=== PATIENT | male | born 1960 | race Two or more races ===

== ENCOUNTER 2017-05-12 12:21 | Inpatient (IN) | payer OTHER ==
[2017-05-12 12:40] VITALS: BMI 27.0
--- NOTE | 2017-05-12 14:20 | HP ---
CIWA Score - CIWA Score Nausea/Vomitin-Mild Nausea/No Vomiting Muscle Tremors: 3 Anxiety: 4-Mod. Anxious/Guarded Agitation: 4-Moderately Restless Paroxysmal Sweats: 3 Orientation: 1-Uncertain about Date Tacttile Disturbances: 2-Mild Itch/Numbness/Burn Auditory Disturbances: 0-None Visual Disturbances: 0-None Headache: 0-None Present CIWA-Ar Total Score: 18 Admission ROS [facility] - HPI Chief Complaint: Withdrawal sx. Allergies/Adverse Reactions: Allergies Allergy/AdvReac Type Severity Reaction Status Date / Time No Known Allergies Allergy Verified 05/12/17 13:43 History of Present Illness: 56 y/o man with a long hx. of alcoholism is admitted for detox. Pt. denies previous detox, he was in rehab once in 1988. Pt. reports 2 yrs. sobriety. Exam Limitations: No Limitations - Ebola screening Have you traveled outside of the country in the last 21 days: No (N) Have you had contact with anyone from an Ebola affected area: No Have you been sick,other than usual withdrawal symptoms: No Do you have a fever: No - Review of Systems Constitutional: Diaphoresis EENT: reports: No Symptoms Reported Respiratory: reports: No Symptoms reported Cardiac: reports: No Symptoms Reported GI: reports: Nausea, Abdominal cramping : reports: No Symptoms Reported Musculoskeletal: reports: Back Pain, Joint Pain Integumentary: reports: Sweating Neuro: reports: Tingling, Tremors Endocrine: reports: No Symptoms Reported Hematology: reports: No Symptoms Reported Psychiatric: reports: No Sypmtoms Reported Other Systems: Reviewed and Negative Patient History - Patient Medical History Hx Anemia: No Hx Asthma: No Hx Chronic Obstructive Pulmonary Disease (COPD): No Hx Cancer: No Hx Cardiac Disorders: No Hx Congestive Heart Failure: No Hx Hypertension: Yes Hx Hypercholesterolemia: Yes Hx Pacemaker: No HX Cerebrovascular Accident: No Hx Seizures: No Hx Dementia: No Hx Diabetes: No Hx Gastrointestinal Disorders: No Hx Liver Disease: No Hx Genitourinary Disorders: No Hx Sexually Transmitted Disorders: Yes (Syphillis) Hx Renal Disease (ESRD): No Hx Thyroid Disease: No Hx Human Immunodeficiency Virus (HIV): No Hx Hepatitis C: No Hx Depression: No Hx Suicide Attempt: No Hx Bipolar Disorder: No Hx Schizophrenia: No - Patient Surgical History Past Surgical History: Yes Hx Neurologic Surgery: Yes (Lumbar laminectomy) Hx Cataract Extraction: No Hx Cardiac Surgery: No Hx Lung Surgery: No Hx Breast Surgery: No Hx Breast Biopsy: No Hx Abdominal Surgery: No Hx Appendectomy: No Hx Cholecystectomy: No Hx Genitourinary Surgery: No Hx Section: No Hx Orthopedic Surgery: Yes (lower back fusion-03/26/17/double knee replacement- 2016 lt knee redone-2016) Anesthesia Reaction: No - PPD History Previous Implant?: Yes Documented Results: Negative w/o proof Implanted On Prior [facility] Admission?: No PPD to be Administered?: Yes - Smoking Cessation Smoking history: Current every day smoker Have you smoked in the past 12 months: Yes Aproximately how many cigarettes per day: 10 Hx Chewing Tobacco Use: No Initiated information on smoking cessation: Yes 'Breaking Loose' booklet given: 05/12/17 - Substance & Tx. History Hx Alcohol Use: Yes Hx Substance Use: Yes Substance Use Type: Alcohol, Cocaine, Marijuana Hx Substance Use Treatment: Yes (Rehab in 1988) - Substances Abused Alcohol Route: Oral Frequency: Daily Amount used: vodka(1liter) Age of first use: 14 Date of Last Use: 05/11/17 Cocaine Route: Inhalation Frequency: Daily Amount used: $50 Age of first use: 33 Date of Last Use: 05/10/17 Marijuana/Hashish Route: Smoking Frequency: Daily Amount used: $20 Age of first use: 16 Date of Last Use: 05/09/17 Family Disease History - Family Disease History Family Disease History: Diabetes: Grandparent, Heart Disease: Father (HTN, Alcohol), Mother (HTN), Other: Father, Brother (Alcohol) Admission Physical Exam [facility] - Vital Signs Vital Signs: Vital Signs - 24 hr 05/12/17 12:24 Temperature 97.6 F Pulse Rate 89 Respiratory 18 Rate Blood Pressure 163/97 - Physical General Appearance: Yes: Tremorous, Irritable, Sweating, Anxious HEENTM: Yes: Within Normal Limits Respiratory: Yes: Chest Non-Tender, Lungs Clear, Normal Breath Sounds Neck: Yes: Supple Breast: Yes: Breast Exam Deferred Cardiology: Yes: Regular Rhythm, Regular Rate, S1, S2 Abdominal: Yes: Normal Bowel Sounds, Non Tender, Soft Genitourinary: Yes: Within Normal Limits Back: Yes: Decreased Range of Motion, Surgical Scar Musculoskeletal: Yes: Joint swelling Extremities: Yes: Tremors, Other (Surgical scars both knees) Neurological: Yes: Fully Oriented, Alert Integumentary: Yes: Within Normal Limits Lymphatic: Yes: Within Normal Limits - Diagnostic (1) Alcohol dependence with uncomplicated withdrawal Current Visit: Yes Status: Acute (2) HTN (hypertension) Current Visit: Yes Status: Acute (3) Hypercholesterolemia Current Visit: Yes Status: Acute (4) Cocaine dependence, uncomplicated Current Visit: Yes Status: Acute (5) Arthritis of both knees Current Visit: Yes Status: Acute Cleared for Admission [facility] - Detox or Rehab [facility] Level of Care: Medically Managed Detox Regimen/Protocol: Librium [facility] Breath Alcohol Content Breath Alcohol Content: 0 Urine Drug Screen - Results Drug Screen Negative: No Urine Drug Screen Results: MAYUR-Cocaine
[2017-05-12] MEDS ORDERED: MAG HYDROX/AL HYDROX/SIMETH 30 ML UNIT-DOSE CUP PO PRN (14:31)
[2017-05-12] MEDS ORDERED: P-EPHED 60MG/TRIPROLIDI 2.5MG TABLET PO PRN (14:31)
[2017-05-12] MEDS ORDERED: guaiFENesin/D-METHORPHAN HB 10 ML UNIT-DOSE CUPS PO PRN (14:31)
[2017-05-12] MEDS ORDERED: MAGNESIUM CITRATE 300 ML BOTTLE PO PRN (14:31)
[2017-05-12] MEDS ORDERED: MAGNESIUM HYDROX 2400MG/30ML ORAL SUSPENSION 30 ML CUP PO PRN (14:31)
[2017-05-12] MEDS ORDERED: chlordiazePOXIDE HCL 25 MG CAPSULE PO ONE (14:31)
[2017-05-12] MEDS ORDERED: MENTHOL/PHENOL 1 EACH UD MM PRN (14:31)
[2017-05-12] MEDS ORDERED: LOPERAMIDE HCL 2 MG CAPSULE PO PRN (14:31)
[2017-05-12] MEDS ORDERED: ACETAMINOPHEN 325 MG TABLET (FP) PO PRN (14:31)
[2017-05-12] MEDS ORDERED: NICOTINE POLACRILEX 2 MG GUM BC PRN (14:31)
[2017-05-12] MEDS ORDERED: chlordiazePOXIDE HCL 25 MG CAPSULE PO PRN (14:31)
[2017-05-12] MEDS: chlordiazePOXIDE HCL 25 MG CAPSULE PO SCH ×2 (17:53→22:14)
[2017-05-12] MEDS: NICOTINE 21 MG/24 HOURS TOPICAL PATCH TD SCH (18:07)
[2017-05-12] MEDS: DOXAZOSIN MESYLATE 4 MG TABLET PO SCH (20:38)
[2017-05-12] MEDS: ATORVASTATIN CA 10 MG TABLET (FP) PO SCH (22:13)
[2017-05-12] MEDS: THIAMINE HCL 100 MG TABLET (FP) PO SCH (22:13)
[2017-05-12] MEDS: CEPHALEXIN MONOHYDRATE 500 MG CAPSULE (UD) PO SCH (22:13)
[2017-05-12] MEDS: IBUPROFEN 400 MG TABLET (FP) PO PRN (22:16)
[2017-05-12] MEDS: hydrOXYzine PAMOATE 50 MG CAPSULE (FP) PO PRN (22:16)
[2017-05-12 23:38] LABS: URINE APPEARANCE TURBID; URINE BILIRUBIN NEGATIVE (NEGATIVE); URINE BLOOD NEGATIVE (NEGATIVE); URINE COLOR YELLOW; URINE GLUCOSE (UA) NEGATIVE (NEGATIVE); URINE KETONE NEGATIVE (NEGATIVE); URINE LEUK ESTERASE NEGATIVE (NEGATIVE); URINE NITRITE NEGATIVE (NEGATIVE); URINE PROTEIN NEGATIVE (NEGATIVE); URINE UROBILINOGEN NEGATIVE mg/dL (0.2-1.0)
[2017-05-13] MEDS: chlordiazePOXIDE HCL 25 MG CAPSULE PO SCH ×5 (05:12→22:07)
--- NOTE | 2017-05-13 08:51 | EKG ---
Test Reason : Blood Pressure : / mmHG Vent. Rate : 084 BPM Atrial Rate : 084 BPM P-R Int : 132 ms QRS Dur : 084 ms QT Int : 362 ms P-R-T Axes : 073 053 023 degrees QTc Int : 427 ms NORMAL SINUS RHYTHM NORMAL ECG NO PREVIOUS ECGS AVAILABLE Confirmed by Vishal Kennedy ([id number]) on 05/13/2017 8:50:43 AM Referred By: Stef Logan Confirmed By:Vishal Kennedy
[2017-05-13 10:24] LABS: HEMATOCRIT 36.2 % (35.4-49); HEMOGLOBIN 11.6 GM/dL (11.7-16.9); MCH 33.5 pg (25.7-33.7); MCHC 32.1 g/dl (32.0-35.9); MEAN CELL VOLUME 104.3 fl (80-96); MEAN PLT VOLUME 8.2 fl (7.5-11.1); PLATELET COUNT 278 K/MM3 (134-434); RBC 3.47 M/mm3 (4.00-5.60); RDW 14.8 % (11.9-15.9); WHITE BLOOD COUNT 5.8 K/mm3 (4.0-10.0)
[2017-05-13 10:27] LABS: CHLORIDE 109 mmol/L (98-107); POTASSIUM 3.5 mmol/L (3.5-5.1); SODIUM 144 mmol/L (136-145)
[2017-05-13 10:34] LABS: ALBUMIN 3.3 g/dl (3.4-5.0); ALK PHOS 73 U/L (45-117); ANION GAP 8 (8-16); BILIRUBIN,TOTAL 0.7 mg/dL (0.2-1.0); BLOOD UREA NITROGEN 16 mg/dL (7-18); CALCIUM 7.9 mg/dL (8.5-10.1); CO2 27 mmol/L (21-32); CREATININE 0.9 mg/dL (0.7-1.3); GLUCOSE,RANDOM 95 mg/dL (74-106); SGOT/AST 16 U/L (15-37); SGPT/ALT 22 U/L (12-78); TOT PROT 5.5 g/dl (6.4-8.2)
[2017-05-13] MEDS: PRENATAL VITAMINS W/ FOLIC ACID TABLET (FP) PO SCH (10:37)
[2017-05-13] MEDS: DOXAZOSIN MESYLATE 4 MG TABLET PO SCH (10:37)
[2017-05-13] MEDS: CEPHALEXIN MONOHYDRATE 500 MG CAPSULE (UD) PO SCH ×2 (10:37→22:07)
[2017-05-13] MEDS: NICOTINE 21 MG/24 HOURS TOPICAL PATCH TD SCH (10:38)
--- NOTE | 2017-05-13 11:47 | PN ---
[facility] CIWA - CIWA Score Nausea/Vomitin-No Nausea/No Vomiting Muscle Tremors: 2 Anxiety: 4-Mod. Anxious/Guarded Agitation: 3 Paroxysmal Sweats: No Perspiration Orientation: 0-Oriented Tacttile Disturbances: 2-Mild Itch/Numbness/Burn Auditory Disturbances: 2-Mild Harshness/Frighten Visual Disturbances: 3-Moderate Sensitivity Headache: 0-None Present CIWA-Ar Total Score: 16 S Progress Note (SOAP) Subjective: Fatigue, Body Aches, Anxious, Tremors. Objective: PT. A & O X 3, OBSERVED AMBULATING ON UNIT. NO ACUTE DISTRESS. 05/13/17 11:47 Vital Signs Temperature 96.0 F L 05/13/17 09:24 Pulse Rate 83 05/13/17 09:24 Respiratory Rate 18 05/13/17 09:24 Blood Pressure 152/89 05/13/17 09:24 O2 Sat by Pulse Oximetry (%) Laboratory Tests 05/12/17 05/13/17 05/13/17 23:20 07:00 07:00 WBC 5.8 RBC 3.47 L Hgb 11.6 L Hct 36.2 MCV 104.3 H MCH 33.5 MCHC 32.1 RDW 14.8 Plt Count 278 MPV 8.2 Sodium Potassium Chloride Carbon Dioxide Anion Gap BUN Creatinine Creat Clearance w eGFR Random Glucose Calcium Total Bilirubin AST ALT Alkaline Phosphatase Total Protein Albumin Urine Color Yellow Urine Appearance Turbid Urine pH 5.0 Ur Specific [place] 1.027 Urine Protein Negative Urine Glucose (UA) Negative Urine Ketones Negative Urine Blood Negative Urine Nitrite Negative Urine Bilirubin Negative Urine Urobilinogen Negative Ur Leukocyte Esterase Negative HIV 1&2 Antibody Screen Negative HIV P24 Antigen Negative 05/13/17 07:00 WBC RBC Hgb Hct MCV MCH MCHC RDW Plt Count MPV Sodium 144 Potassium 3.5 Chloride 109 H Carbon Dioxide 27 Anion Gap 8 BUN 16 Creatinine 0.9 Creat Clearance w eGFR > 60 Random Glucose 95 Calcium 7.9 L Total Bilirubin 0.7 AST 16 ALT 22 Alkaline Phosphatase 73 Total Protein 5.5 L Albumin 3.3 L Urine Color Urine Appearance Urine pH Ur Specific [place] Urine Protein Urine Glucose (UA) Urine Ketones Urine Blood Urine Nitrite Urine Bilirubin Urine Urobilinogen Ur Leukocyte Esterase HIV 1&2 Antibody Screen HIV P24 Antigen LABS NOTED. RPR RESULT PENDING. 05/13/17 11:49 Assessment: 05/13/17 11:48 WITHDRAWAL SYMPTOMS. Plan: CONTINUE DETOX.
--- NOTE | 2017-05-13 19:21 | PN ---
[facility] Progress Note Note: received nurse called that the patient refuses librium 25 mg x 1 dose today
[2017-05-13] MEDS: ATORVASTATIN CA 10 MG TABLET (FP) PO SCH (22:07)
[2017-05-13] MEDS: THIAMINE HCL 100 MG TABLET (FP) PO SCH (22:07)
[2017-05-13] MEDS: IBUPROFEN 400 MG TABLET (FP) PO PRN (22:09)
[2017-05-13] MEDS: hydrOXYzine PAMOATE 50 MG CAPSULE (FP) PO PRN (22:10)
[2017-05-14] MEDS: chlordiazePOXIDE HCL 25 MG CAPSULE PO SCH ×2 (06:29→10:37)
[2017-05-14] MEDS: DOXAZOSIN MESYLATE 4 MG TABLET PO SCH (10:36)
[2017-05-14] MEDS: PRENATAL VITAMINS W/ FOLIC ACID TABLET (FP) PO SCH (10:36)
[2017-05-14] MEDS: NICOTINE 21 MG/24 HOURS TOPICAL PATCH TD SCH (10:36)
[2017-05-14] MEDS: CEPHALEXIN MONOHYDRATE 500 MG CAPSULE (UD) PO SCH ×2 (10:36→22:08)
--- NOTE | 2017-05-14 13:23 | PN ---
[facility] CIWA - CIWA Score Nausea/Vomitin-No Nausea/No Vomiting Muscle Tremors: 2 Anxiety: 4-Mod. Anxious/Guarded Agitation: 3 Paroxysmal Sweats: 2 Orientation: 0-Oriented Tacttile Disturbances: 3-Moderate Itch/Numb/Burn Auditory Disturbances: 1-Very Mild Visual Disturbances: 2-Mild Sensitivity Headache: 0-None Present CIWA-Ar Total Score: 17 S Progress Note (SOAP) Subjective: Anxious, Body Aches, Interrupted Sleep. Objective: PT. A & O X 3, OBSERVED AMBULATING ON UNIT. NO ACUTE DISTRESS. 05/14/17 13:22 Vital Signs Temperature 97 F L 05/14/17 13:19 Pulse Rate 111 H 05/14/17 13:19 Respiratory Rate 18 05/14/17 13:19 Blood Pressure 132/87 05/14/17 13:19 O2 Sat by Pulse Oximetry (%) Laboratory Tests 05/12/17 05/13/17 05/13/17 23:20 07:00 07:00 WBC 5.8 RBC 3.47 L Hgb 11.6 L Hct 36.2 MCV 104.3 H MCH 33.5 MCHC 32.1 RDW 14.8 Plt Count 278 MPV 8.2 Sodium Potassium Chloride Carbon Dioxide Anion Gap BUN Creatinine Creat Clearance w eGFR Random Glucose Calcium Total Bilirubin AST ALT Alkaline Phosphatase Total Protein Albumin Urine Color Yellow Urine Appearance Turbid Urine pH 5.0 Ur Specific [place] 1.027 Urine Protein Negative Urine Glucose (UA) Negative Urine Ketones Negative Urine Blood Negative Urine Nitrite Negative Urine Bilirubin Negative Urine Urobilinogen Negative Ur Leukocyte Esterase Negative RPR Titer HIV 1&2 Antibody Screen Negative HIV P24 Antigen Negative 05/13/17 05/13/17 07:00 07:00 WBC RBC Hgb Hct MCV MCH MCHC RDW Plt Count MPV Sodium 144 Potassium 3.5 Chloride 109 H Carbon Dioxide 27 Anion Gap 8 BUN 16 Creatinine 0.9 Creat Clearance w eGFR > 60 Random Glucose 95 Calcium 7.9 L Total Bilirubin 0.7 AST 16 ALT 22 Alkaline Phosphatase 73 Total Protein 5.5 L Albumin 3.3 L Urine Color Urine Appearance Urine pH Ur Specific [place] Urine Protein Urine Glucose (UA) Urine Ketones Urine Blood Urine Nitrite Urine Bilirubin Urine Urobilinogen Ur Leukocyte Esterase RPR Titer Nonreactive HIV 1&2 Antibody Screen HIV P24 Antigen LABS NOTED. Assessment: 05/14/17 13:22 WITHDRAWAL SYMPTOMS. Plan: CONTINUE DETOX. INCREASE DAILY PO FLUID INTAKE.
[2017-05-14] MEDS: chlordiazePOXIDE 5 MG CAPSULE PO SCH ×2 (17:42→22:08)
[2017-05-14] MEDS: IBUPROFEN 400 MG TABLET (FP) PO PRN ×2 (17:43→23:35)
--- NOTE | 2017-05-14 19:19 | PN ---
S Progress Note Note: received nurse call that the patient refuses librium 15 mg x 1 today
[2017-05-14] MEDS: THIAMINE HCL 100 MG TABLET (FP) PO SCH (22:08)
[2017-05-14] MEDS: hydrOXYzine PAMOATE 50 MG CAPSULE (FP) PO PRN (22:08)
[2017-05-14] MEDS: ATORVASTATIN CA 10 MG TABLET (FP) PO SCH (22:08)
[2017-05-14] MEDS ORDERED: cloNIDine HCL 0.1 MG TABLET PO ONE (23:30)
[2017-05-15] MEDS: chlordiazePOXIDE 5 MG CAPSULE PO SCH ×2 (06:02→10:07)
[2017-05-15] MEDS: CEPHALEXIN MONOHYDRATE 500 MG CAPSULE (UD) PO SCH ×2 (10:06→22:08)
[2017-05-15] MEDS: DOXAZOSIN MESYLATE 4 MG TABLET PO SCH (10:06)
[2017-05-15] MEDS: PRENATAL VITAMINS W/ FOLIC ACID TABLET (FP) PO SCH (10:06)
[2017-05-15] MEDS: NICOTINE 21 MG/24 HOURS TOPICAL PATCH TD SCH (10:07)
--- NOTE | 2017-05-15 13:12 | PN ---
[facility] Progress Note (SOAP) Subjective: Sweating, Body aches, Anxious. Objective: PT. A & O X 3, OBSERVED AMBULATING ON UNIT. NO ACUTE DISTRESS. 05/15/17 13:10 Vital Signs Temperature 97.3 F L 05/15/17 13:04 Pulse Rate 95 H 05/15/17 13:04 Respiratory Rate 18 05/15/17 13:04 Blood Pressure 137/80 05/15/17 13:04 O2 Sat by Pulse Oximetry (%) Laboratory Tests 05/12/17 05/13/17 05/13/17 23:20 07:00 07:00 WBC 5.8 RBC 3.47 L Hgb 11.6 L Hct 36.2 MCV 104.3 H MCH 33.5 MCHC 32.1 RDW 14.8 Plt Count 278 MPV 8.2 Sodium Potassium Chloride Carbon Dioxide Anion Gap BUN Creatinine Creat Clearance w eGFR Random Glucose Calcium Total Bilirubin AST ALT Alkaline Phosphatase Total Protein Albumin Urine Color Yellow Urine Appearance Turbid Urine pH 5.0 Ur Specific [place] 1.027 Urine Protein Negative Urine Glucose (UA) Negative Urine Ketones Negative Urine Blood Negative Urine Nitrite Negative Urine Bilirubin Negative Urine Urobilinogen Negative Ur Leukocyte Esterase Negative RPR Titer HIV 1&2 Antibody Screen Negative HIV P24 Antigen Negative 05/13/17 05/13/17 07:00 07:00 WBC RBC Hgb Hct MCV MCH MCHC RDW Plt Count MPV Sodium 144 Potassium 3.5 Chloride 109 H Carbon Dioxide 27 Anion Gap 8 BUN 16 Creatinine 0.9 Creat Clearance w eGFR > 60 Random Glucose 95 Calcium 7.9 L Total Bilirubin 0.7 AST 16 ALT 22 Alkaline Phosphatase 73 Total Protein 5.5 L Albumin 3.3 L Urine Color Urine Appearance Urine pH Ur Specific [place] Urine Protein Urine Glucose (UA) Urine Ketones Urine Blood Urine Nitrite Urine Bilirubin Urine Urobilinogen Ur Leukocyte Esterase RPR Titer Nonreactive HIV 1&2 Antibody Screen HIV P24 Antigen LABS NOTED. Assessment: 05/15/17 13:11 WITHDRAWAL SYMPTOMS. Plan: CONTINUE DETOX. INCREASE DAILY PO FLUID INTAKE.
[2017-05-15] MEDS: chlordiazePOXIDE HCL 10 MG CAPSULE PO SCH ×2 (17:51→22:08)
[2017-05-15] MEDS: IBUPROFEN 400 MG TABLET (FP) PO PRN (22:07)
[2017-05-15] MEDS: ATORVASTATIN CA 10 MG TABLET (FP) PO SCH (22:08)
[2017-05-15] MEDS: THIAMINE HCL 100 MG TABLET (FP) PO SCH (22:08)
[2017-05-15] MEDS: hydrOXYzine PAMOATE 50 MG CAPSULE (FP) PO PRN (22:08)
[2017-05-16 06:06] VITALS: BP 155/86; PULSE 77; TEMP 96.7
[2017-05-16] MEDS: chlordiazePOXIDE HCL 10 MG CAPSULE PO SCH ×2 (06:35→11:23)
[2017-05-16] MEDS: CEPHALEXIN MONOHYDRATE 500 MG CAPSULE (UD) PO SCH (10:20)
[2017-05-16] MEDS: NICOTINE 21 MG/24 HOURS TOPICAL PATCH TD SCH (10:20)
[2017-05-16] MEDS: DOXAZOSIN MESYLATE 4 MG TABLET PO SCH (10:20)
[2017-05-16] MEDS: PRENATAL VITAMINS W/ FOLIC ACID TABLET (FP) PO SCH (10:20)
--- NOTE | 2017-05-16 16:27 | DS ---
[facility] Detox Discharge Summary Admission Date: 05/12/17 Discharge Date: 05/16/17 - History Present History: Alcohol Dependence, Cocaine Dependence Additional Comments: PATIENT GOING TO [facility] ([place], [place] FOR AFTERCARE. WHEN ASKED, PATIENT PATIENT DECLINED OFFER OF DISCHARGE MEDICATIONS. PATIENT WAS DISCHARGED FROM DETOX UNIT IN STABLE MEDICAL CONDITION. Pertinent Past History: HTN, Hypercholesterolemia, History of Arthritis of both knees. - Physical Exam Results Vital Signs: Vital Signs Temperature 96.7 F L 05/16/17 06:05 Pulse Rate 77 05/16/17 06:05 Respiratory Rate 18 05/16/17 06:05 Blood Pressure 155/86 05/16/17 06:05 O2 Sat by Pulse Oximetry (%) Pertinent Admission Physical Exam Findings: WITHDRAWAL SYMPTOMS. Laboratory Tests 05/12/17 05/13/17 05/13/17 23:20 07:00 07:00 WBC 5.8 RBC 3.47 L Hgb 11.6 L Hct 36.2 MCV 104.3 H MCH 33.5 MCHC 32.1 RDW 14.8 Plt Count 278 MPV 8.2 Sodium Potassium Chloride Carbon Dioxide Anion Gap BUN Creatinine Creat Clearance w eGFR Random Glucose Calcium Total Bilirubin AST ALT Alkaline Phosphatase Total Protein Albumin Urine Color Yellow Urine Appearance Turbid Urine pH 5.0 Ur Specific [place] 1.027 Urine Protein Negative Urine Glucose (UA) Negative Urine Ketones Negative Urine Blood Negative Urine Nitrite Negative Urine Bilirubin Negative Urine Urobilinogen Negative Ur Leukocyte Esterase Negative RPR Titer HIV 1&2 Antibody Screen Negative HIV P24 Antigen Negative 05/13/17 05/13/17 07:00 07:00 WBC RBC Hgb Hct MCV MCH MCHC RDW Plt Count MPV Sodium 144 Potassium 3.5 Chloride 109 H Carbon Dioxide 27 Anion Gap 8 BUN 16 Creatinine 0.9 Creat Clearance w eGFR > 60 Random Glucose 95 Calcium 7.9 L Total Bilirubin 0.7 AST 16 ALT 22 Alkaline Phosphatase 73 Total Protein 5.5 L Albumin 3.3 L Urine Color Urine Appearance Urine pH Ur Specific [place] Urine Protein Urine Glucose (UA) Urine Ketones Urine Blood Urine Nitrite Urine Bilirubin Urine Urobilinogen Ur Leukocyte Esterase RPR Titer Nonreactive HIV 1&2 Antibody Screen HIV P24 Antigen LABS NOTED. - Treatment Hospital Course: Detox Protocol Followed, Detoxed Safely, Responded well, Discharged Condition Good, Rehab Referral Accepted Patient has Accepted a Rehab Referral to: [facility] ([place] - Medication Discharge Medications: Ambulatory Orders Atorvastatin Ca [Lipitor] 10 mg PO DAILY 05/12/17 Cephalexin [Keflex] 500 mg PO BID 05/12/17 Doxazosin Mesylate 4 mg PO DAILY 05/12/17 - Diagnosis (1) Alcohol dependence with uncomplicated withdrawal Status: Acute (2) Arthritis of both knees Status: Acute (3) Cocaine dependence, uncomplicated Status: Acute (4) HTN (hypertension) Status: Acute Qualifiers: Hypertension type: unspecified Qualified Code(s): I10 - Essential (primary ) hypertension (5) Hypercholesterolemia Status: Chronic - AMA Did Patient Leave Against Medical Advice: No
== END 2017-05-16 11:28 | disposition home or self-care (01) | DRG 897 ==
LOC: YASAS 12:21 → Y3N 16:32 → UNDODISIN 05-16 09:36
PROVIDERS: ADMIT Internal Medicine; ATTEND Internal Medicine
PROC: HZ2ZZZZ Detoxification Services for Substance Abuse Treatment (ICD-10-PCS; principal; 2017-05-12)
DX: F10.230 Alcohol dependence with withdrawal, uncomplicated (principal); F14.20 Cocaine dependence, uncomplicated; I10 Essential (primary) hypertension; E78.00 Pure hypercholesterolemia, unspecified; M13.862 Other specified arthritis, left knee; M13.861 Other specified arthritis, right knee; Z87.438 Personal history of other diseases of male genital organs
CPT/HCPCS: 36415; 80053; 81003; 85027; 86593; 87389; 93005; 93010; J0735